=== PATIENT | female | born 1940 | race Caucasian/White ===

== ENCOUNTER → 2018-08-13 | Outpatient (CLI) | payer MEDICARE ==
--- NOTE | 2018-08-13 11:29 | US ---
EXAMINATION TYPE: US kidneys/renal and bladder DATE OF EXAM: 08/13/2018 COMPARISON: NONE CLINICAL HISTORY: R94.4 abnormal renal function tests. EXAM MEASUREMENTS: Right Kidney: 9.0 x 3.7 x 3.3 cm Left Kidney: 8.4 x 3.5 x 3.6 cm Large body habitus Right Kidney: multiple cysts noted, mid probable cyst has internal echoes and measures 0.9 x 0.6 x 0. 7cm Left Kidney: measures small, lobular in appearance Bladder: not fully distended, limited evaluation There is no evidence for hydronephrosis at this point in time. No nephrolithiasis is seen. The ur inary bladder is anechoic. Bilateral ureteral jets are seen. IMPRESSION: 1. Renal atrophic changes. 2. Renal cystic changes as noted above.
== END | disposition home or self-care (01) ==
LOC: RADUSWWP 10:50
PROVIDERS: ATTEND Family Medicine
DX: N26.1 Atrophy of kidney (terminal) (principal); N28.1 Cyst of kidney, acquired
CPT/HCPCS: 76770

== ENCOUNTER 2020-07-08 16:35 | Observation (INO) | payer MEDICARE ==
[2020-07-08 17:18] LABS: Basophils # (A) 0.1 k/uL (0-0.2); Basophils % (A) 1 %; Eosinophils # (A) 0.2 k/uL (0-0.7); Eosinophils % (A) 1 %; HCT 47.7 % (34.0-46.0); HGB 14.9 gm/dL (11.4-16.0); Hypochromasia Slight; Lymphocytes # (A) 1.9 k/uL (1.0-4.8); Lymphocytes % (A) 16 %; MCH 29.4 pg (25.0-35.0); MCHC 31.2 g/dL (31.0-37.0); MCV 94.2 fL (80.0-100.0); Mean Platelet Volume 8.2; Monocytes # (A) 0.7 k/uL (0-1.0); Monocytes % (A) 6 %; Neutrophils # (A) 8.8 k/uL (1.3-7.7); Neutrophils % (A) 74 %; Platelet Count 167 k/uL (150-450); RBC 5.07 m/uL (3.80-5.40); RDW 14.6 % (11.5-15.5)
[2020-07-08 17:29] LABS: INR 1.2 (<1.2); Partial Thromboplastin Time 28.4 sec (22.0-30.0); Prothrombin Time 12.5 sec (9.0-12.0)
[2020-07-08 17:37] LABS: Albumin 3.5 g/dL (3.5-5.0); Calcium 8.8 mg/dL (8.4-10.2); Magnesium 2.2 mg/dL (1.6-2.3); Potassium 4.6 mmol/L (3.5-5.1); Total Bilirubin 1.1 mg/dL (0.2-1.3)
--- NOTE | 2020-07-08 18:06 | ED ---
General Adult HPI - General Chief complaint: Recheck/Abnormal Lab/Rx Stated complaint: poss aneurysm Time Seen by Provider: 07/08/20 16:35 Source: patient, family, RN notes reviewed, old records reviewed Mode of arrival: wheelchair Limitations: no limitations - History of Present Illness Initial comments: This is an 80-year-old female who presents to the emergency department. Patient was called back to the emergency department because they found a 7.8 cm abdominal aneurysm minute 4.8D sending thoracic aneurysm. Patient states currently she is feeling normal. Patient denies any symptoms currently. Patient initially got a CAT scan because of a rectal prolapse and the return to determine if there is something causing this. Patient also has had a recent weight loss. Patient denies any back pain or abdominal pain patient denies nausea vomiting diarrhea. Patient has any fever chills or cough. - Related Data Home Medications Medication Instructions Recorded Confirmed Ipratropium-Albuterol Nebulize 3 ml INHALATION RT-Q4H PRN 07/08/20 07/08/20 [Duoneb 0.5 mg-3 mg/3 ml Soln] Levothyroxine Sodium [Synthroid] 112 mcg PO DAILY 07/08/20 07/08/20 Metoprolol Tartrate 25 mg PO HS 07/08/20 07/08/20 Metoprolol Tartrate 50 mg PO DAILY 07/08/20 07/08/20 Rivaroxaban [Xarelto] 10 mg PO DAILY 07/08/20 07/08/20 Allergies Allergy/AdvReac Type Severity Reaction Status Date / Time No Known Allergies Allergy Verified 07/08/20 18:29 Review of Systems ROS Statement: Those systems with pertinent positive or pertinent negative responses have been documented in the HPI. ROS Other: All systems not noted in ROS Statement are negative. Past Medical History Past Medical History: Heart Failure, Thyroid Disorder Additional Past Medical History / Comment(s): stage 4 kidney disease History of Any Multi-Drug Resistant Organisms: None Reported Past Surgical History: No Surgical Hx Reported Past Psychological History: No Psychological Hx Reported Smoking Status: Current some day smoker Past Alcohol Use History: None Reported Past Drug Use History: None Reported General Exam - General Exam Comments Initial Comments: GENERAL: Patient is well-developed and well-nourished. Patient is nontoxic and well- hydrated and is in no acute distress. ENT: Neck is soft and supple. No significant lymphadenopathy is noted. Oropharynx is clear. Moist mucous membranes. Neck has full range of motion without eliciting any pain. EYES: The sclera were anicteric and conjunctiva were pink and moist. Extraocular movements were intact and pupils were equal round and reactive to light. Eyelids were unremarkable. PULMONARY: Unlabored respirations. Good breath sounds bilaterally. No audible rales rhonchi or wheezing was noted. CARDIOVASCULAR: There is a regular rate and rhythm without any murmurs gallops or rubs. ABDOMEN: Soft and nontender with normal bowel sounds. SKIN: Skin is clear with no lesions or rashes and otherwise unremarkable. NEUROLOGIC: Patient is alert and oriented x3. Cranial nerves II through XII are grossly intact. Motor and sensory are also intact. Normal speech, volume and content. Symmetrical smile. MUSCULOSKELETAL: Normal extremities with adequate strength and full range of motion. No lower extremity swelling or edema. No calf tenderness. LYMPHATICS: No significant lymphadenopathy is noted PSYCHIATRIC: Normal psychiatric evaluation. Limitations: no limitations Course Vital Signs 07/08/20 07/08/20 07/08/20 16:35 16:56 18:23 Temperature 98.4 F Pulse Rate 108 H 105 H Respiratory 16 16 Rate Blood Pressure 106/78 125/78 Blood Pressure 122/90 [Left Arm Sitting] Blood Pressure 125/68 [Right Arm Sitting] O2 Sat by Pulse 98 100 Oximetry Medical Decision Making - Medical Decision Making EKG shows atrial fibrillation at a rapid rate 112 bpm QRS is 94 QT interval 334 QTC is 455. Patient's EKG shows no significant ST elevation or depression Patient's creatinine was too elevated to do a CAT scan at this time. I spoke with Dr. Caraballo and he wanted the patient admitted and seen by nephrology. I spoke with Dr. Singer - Lab Data Result diagrams: 07/08/20 17:01 07/08/20 17:01 Lab Results 07/08/20 07/08/20 07/08/20 Range/Units 17:01 17:01 17:01 WBC 12.0 H (3.8-10.6) k/uL RBC 5.07 (3.80-5.40) m/uL Hgb 14.9 (11.4-16.0) gm/dL Hct 47.7 H (34.0-46.0) % MCV 94.2 (80.0-100.0) fL MCH 29.4 (25.0-35.0) pg MCHC 31.2 (31.0-37.0) g/dL RDW 14.6 (11.5-15.5) % Plt Count 167 (150-450) k/uL Neutrophils % 74 % Lymphocytes % 16 % Monocytes % 6 % Eosinophils % 1 % Basophils % 1 % Neutrophils # 8.8 H (1.3-7.7) k/uL Lymphocytes # 1.9 (1.0-4.8) k/uL Monocytes # 0.7 (0-1.0) k/uL Eosinophils # 0.2 (0-0.7) k/uL Basophils # 0.1 (0-0.2) k/uL Hypochromasia Slight PT 12.5 H (9.0-12.0) sec INR 1.2 H (<1.2) APTT 28.4 (22.0-30.0) sec Sodium 135 L (137-145) mmol/L Potassium 4.6 (3.5-5.1) mmol/L Chloride 102 (98-107) mmol/L Carbon Dioxide 23 (22-30) mmol/L Anion Gap 10 mmol/L BUN 60 H (7-17) mg/dL Creatinine 2.60 H (0.52-1.04) mg/dL Est GFR (CKD-EPI)AfAm 19 (>60 ml/min/1.73 sqM) Est GFR (CKD-EPI)NonAf 17 (>60 ml/min/1.73 sqM) Glucose 87 (74-99) mg/dL Calcium 8.8 (8.4-10.2) mg/dL Magnesium 2.2 (1.6-2.3) mg/dL Total Bilirubin 1.1 (0.2-1.3) mg/dL AST 27 (14-36) U/L ALT 27 (4-34) U/L Alkaline Phosphatase 51 (38-126) U/L Troponin I (0.000-0.034) ng/mL Total Protein 6.0 L (6.3-8.2) g/dL Albumin 3.5 (3.5-5.0) g/dL 07/08/20 Range/Units 17:01 WBC (3.8-10.6) k/uL RBC (3.80-5.40) m/uL Hgb (11.4-16.0) gm/dL Hct (34.0-46.0) % MCV (80.0-100.0) fL MCH (25.0-35.0) pg MCHC (31.0-37.0) g/dL RDW (11.5-15.5) % Plt Count (150-450) k/uL Neutrophils % % Lymphocytes % % Monocytes % % Eosinophils % % Basophils % % Neutrophils # (1.3-7.7) k/uL Lymphocytes # (1.0-4.8) k/uL Monocytes # (0-1.0) k/uL Eosinophils # (0-0.7) k/uL Basophils # (0-0.2) k/uL Hypochromasia PT (9.0-12.0) sec INR (<1.2) APTT (22.0-30.0) sec Sodium (137-145) mmol/L Potassium (3.5-5.1) mmol/L Chloride (98-107) mmol/L Carbon Dioxide (22-30) mmol/L Anion Gap mmol/L BUN (7-17) mg/dL Creatinine (0.52-1.04) mg/dL Est GFR (CKD-EPI)AfAm (>60 ml/min/1.73 sqM) Est GFR (CKD-EPI)NonAf (>60 ml/min/1.73 sqM) Glucose (74-99) mg/dL Calcium (8.4-10.2) mg/dL Magnesium (1.6-2.3) mg/dL Total Bilirubin (0.2-1.3) mg/dL AST (14-36) U/L ALT (4-34) U/L Alkaline Phosphatase (38-126) U/L Troponin I 0.018 (0.000-0.034) ng/mL Total Protein (6.3-8.2) g/dL Albumin (3.5-5.0) g/dL Disposition Clinical Impression: Abdominal aortic aneurysm Disposition: ADMITTED IP TO THIS [facility] Referrals: Elpidio Viveros MD [Primary Care Provider] - 1-2 days Time of Disposition: 19:19
[2020-07-08] MEDS ORDERED: SODIUM CHLORIDE 0.9% 1,000 ML IV ONE (19:20)
[2020-07-08] MEDS ORDERED: NALOXONE 0.4 MG/ML 1 ML VIAL IV PRN (23:05)
[2020-07-08] MEDS ORDERED: METOPROLOL TARTRATE 25 MG TAB PO SCH (23:45)
[2020-07-08] MEDS ORDERED: IPRATROPIUM-ALBUTEROL 3 ML NEB INHALATION PRN (23:58)
--- NOTE | 2020-07-09 00:04 | P.HPIM ---
History of Present Illness H&P Date: 07/08/20 Chief Complaint: abnormal CT scan results 80-year-old female with COPD, new onset A. fib on Xarelto Patient comes in upon notification from her doctor that she had abnormal CAT scan showing large abdominal aortic aneurysm that was found incidentally on a CAT scan of the abdomen that was done for rectal prolapse. Patient is asymptomatic denies any chest pain or trouble breathing denies any bleeding denies any fevers or chills denies any shortness of breath denies any nausea vomiting denies any abdominal pain She had a CAT scan of the abdomen done today and a workup for her rectal prolapse and incidentally was found to have a descending thoracic aortic aneurysm of 4.8 cm and an abdominal aortic aneurysm of 7.8 cm for which her doctor called her asking her to come to the hospital to get evaluated by vascular surgery. Review of Systems Pertinent positives as noted in HPI. All other systems were reviewed and are negative Past Medical History Past Medical History: Heart Failure, Thyroid Disorder Additional Past Medical History / Comment(s): stage 4 kidney disease, rectal prolapse History of Any Multi-Drug Resistant Organisms: None Reported Past Surgical History: Section Additional Past Surgical History / Comment(s): brain aneurysum 10 or 11 years ago, possible stenting Past Anesthesia/Blood Transfusion Reactions: No Reported Reaction Past Psychological History: No Psychological Hx Reported Smoking Status: Current some day smoker Past Alcohol Use History: None Reported Additional Past Alcohol Use History / Comment(s): has cut back to less than a pack a day Past Drug Use History: None Reported - Past Family History Family Family Medical History: No Reported History Medications and Allergies Home Medications Medication Instructions Recorded Confirmed Type Ipratropium-Albuterol Nebulize 3 ml INHALATION RT-Q4H PRN 07/08/20 07/08/20 History [Duoneb 0.5 mg-3 mg/3 ml Soln] Levothyroxine Sodium [Synthroid] 112 mcg PO DAILY 07/08/20 07/08/20 History Metoprolol Tartrate 25 mg PO HS 07/08/20 07/08/20 History Metoprolol Tartrate 50 mg PO DAILY 07/08/20 07/08/20 History Rivaroxaban [Xarelto] 10 mg PO DAILY 07/08/20 07/08/20 History Allergies Allergy/AdvReac Type Severity Reaction Status Date / Time No Known Allergies Allergy Verified 07/08/20 18:29 Physical Exam Vitals: Vital Signs Temp Pulse Pulse Resp BP BP BP 07/08/20 22:35 100 07/08/20 22:34 98.1 F 100 20 115/91 07/08/20 20:53 98.1 F 103 H 16 126/85 07/08/20 19:31 97 16 125/68 07/08/20 18:23 105 H 16 125/78 07/08/20 16:56 122/90 125/68 07/08/20 16:35 98.4 F 108 H 16 106/78 Pulse Ox 07/08/20 22:35 07/08/20 22:34 96 07/08/20 20:53 99 07/08/20 19:31 100 07/08/20 18:23 100 07/08/20 16:56 07/08/20 16:35 98 Intake and Output 07/08/20 07/08/20 07/09/20 14:59 22:59 06:59 Other: Voiding Method Toilet # Voids 1 Weight 56.699 kg Constitutional: No acute distress, conversant, pleasant Eyes: Anicteric sclerae, moist conjunctiva, Pupils equal round reactive to light ENMT: NC/AT Oropharynx clear, no erythema, or exudates Neck: Supple, FROM, no masses, or JVD No carotid bruits No thyromegaly Lungs: Clear to auscultation Clear to percussion Normal respiratory effort, no accessory muscle use Cardiovascular: Heart irregular in rate and rhythm No murmurs, gallops, or rubs Trace bilateral leg edema Abdominal: Soft Nontender, no guarding, rebound or rigidity Abdomen moving with respiration Normoactive bowel sounds No hepatomegaly, No splenomegaly No palpable mass No abdominal wall hernia noted Skin: Normal temperature, tone, texture, turgor No induration No subcutaneous nodules No rash, lesions No ulcers Extremities: No digital cyanosis No clubbing Pedal pulses intact and symmetrical Radial pulses intact and symmetrical No calf tenderness Psychiatric: Alert and oriented to person, place and time Appropriate affect fair judgement Neuro Muscles Strength 5/5 in all 4 extremities Sensation to light touch grossly present throughout Cranial nerves II-XII grossly intact No focal sensory deficits Lymphatics: no palpable cervical or supraclavicular , or inguinal lymph nodes Results CBC & Chem 7: 07/08/20 17:01 07/08/20 17:01 Labs: Abnormal Lab Results - Last 24 Hours (Table) 07/08/20 07/08/20 07/08/20 Range/Units 17:01 17:01 17:01 WBC 12.0 H (3.8-10.6) k/uL Hct 47.7 H (34.0-46.0) % Neutrophils # 8.8 H (1.3-7.7) k/uL PT 12.5 H (9.0-12.0) sec INR 1.2 H (<1.2) Sodium 135 L (137-145) mmol/L BUN 60 H (7-17) mg/dL Creatinine 2.60 H (0.52-1.04) mg/dL Total Protein 6.0 L (6.3-8.2) g/dL Thrombosis Risk Factor Assmnt - Choose All That Apply Any of the Below Risk Factors Present?: Yes Each Factor Represents 1 point: Abnormal pulmonary function (COPD) Other Risk Factors: No Other congenital or acquired thrombophilia - If yes, enter type in comment: No Thrombosis Risk Factor Assessment Total Risk Factor Score: 1 Thrombosis Risk Factor Assessment Level: Low Risk Assessment and Plan Assessment: Incidental finding of large aortic abdominal aneurysm 7.8 cm and descending thoracic aortic aneurysm 4.8 cm Consultation to vascular surgery Chronic conditions COPD currently compensated resume Symbicort and DuoNeb's when necessary New onset A. fib rate controlled on Xarelto and metoprolol Mild Bilateral lower extremity edema, currently diuretics are on hold per her PCP Check echocardiogram assess left ventricular function CODE STATUS: Full code DVT prophylaxis: On Xarelto Discussed with: Patient, ER, RN Anticipated length of stay less than [address]: Home A total of 65 minutes was spent on the care of this complex patient more than 50% of the time was spent in counseling and care coordination.
[2020-07-09] MEDS ORDERED: LEVOTHYROXINE 112 MCG TAB PO SCH (06:30)
[2020-07-09 07:30] LABS: Basophils # (A) 0.1 k/uL (0-0.2); Basophils % (A) 1 %; Eosinophils # (A) 0.1 k/uL (0-0.7); Eosinophils % (A) 1 %; HCT 47.7 % (34.0-46.0); HGB 14.4 gm/dL (11.4-16.0); Hypochromasia Slight; Lymphocytes # (A) 1.9 k/uL (1.0-4.8); Lymphocytes % (A) 19 %; MCH 28.5 pg (25.0-35.0); MCHC 30.1 g/dL (31.0-37.0); MCV 94.7 fL (80.0-100.0); Mean Platelet Volume 7.7; Monocytes # (A) 0.6 k/uL (0-1.0); Monocytes % (A) 6 %; Neutrophils # (A) 6.9 k/uL (1.3-7.7); Neutrophils % (A) 71 %; Platelet Count 155 k/uL (150-450); RBC 5.04 m/uL (3.80-5.40); RDW 14.6 % (11.5-15.5); WBC 9.7 k/uL (3.8-10.6)
[2020-07-09 07:45] LABS: Albumin 3.1 g/dL (3.5-5.0); Calcium 8.5 mg/dL (8.4-10.2); Magnesium 2.1 mg/dL (1.6-2.3); Potassium 4.2 mmol/L (3.5-5.1); Total Bilirubin 1.4 mg/dL (0.2-1.3); Total Protein 5.5 g/dL (6.3-8.2)
[2020-07-09] MEDS ORDERED: SYMBICORT 80-4.5 MCG INHALER INHALATION SCH (08:00)
[2020-07-09] MEDS ORDERED: METOPROLOL TARTRATE 25 MG TAB PO SCH (09:00)
[2020-07-09] MEDS ORDERED: RIVAROXABAN 10 MG TAB PO SCH (09:00)
[2020-07-09] MEDS ORDERED: NICOTINE 14MG/24HR PATCH TRANSDERM SCH (09:00)
--- NOTE | 2020-07-09 10:05 | P.NPCON ---
History of Present Illness - Reason for Consult chronic renal failure - History of Present Illness Reason for consultation: Chronic kidney disease History of present illness: Patient is a 80-year-old female seen in consultation for chronic kidney disease. 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 However her records it appears that she does have chronic kidney disease stage IV secondary to nephrosclerosis. Patient's creatinine on admission was 2.6 and is 2.43 today. Unknown baseline renal function. No history of high blood pressure or diabetes. Patient presented to the hospital due to concern for abdominal aortic aneurysm that was found on CAT scan of the abdomen and pelvis. The CAT scan was actually done to evaluate the rectal prolapse. Patient denies any chest pain or ron rtness of breath. No edema. Good urine output. No hematuria or dysuria. Denies use of nonsteroidals. No dizziness or syncopal episodes. CAT scan revealed a descending thoracic aortic aneurysm of 4.8 cm and an abdominal aortic aneurysm 7.8 cm. Vascular surgery has been consulted. Echocardiogram is pending. Son is present at bedside. No other complaints. Vital signs are stable. General: The patient appeared well nourished and normally developed. HEENT: Head exam is unremarkable. Neck is without jugular venous distension. LUNGS: Lungs are clear to auscultation and percussion. Breath sounds decreased. HEART: Rate and Rhythm are regular. ABDOMEN: Soft, nontender. EXTREMITITES: No clubbing, cyanosis, or edema. Past Medical History Past Medical History: Heart Failure, Thyroid Disorder Additional Past Medical History / Comment(s): stage 4 kidney disease, rectal prolapse History of Any Multi-Drug Resistant Organisms: None Reported Past Surgical History: Section Additional Past Surgical History / Comment(s): brain aneurysum 10 or 11 years ago, possible stenting Past Anesthesia/Blood Transfusion Reactions: No Reported Reaction Past Psychological History: No Psychological Hx Reported Smoking Status: Current some day smoker Past Alcohol Use History: None Reported Additional Past Alcohol Use History / Comment(s): has cut back to less than a pack a day Past Drug Use History: None Reported - Past Family History Family Family Medical History: No Reported History Medications and Allergies Home Medications Medication Instructions Recorded Confirmed Type Ipratropium-Albuterol Nebulize 3 ml INHALATION RT-Q4H PRN 07/08/20 07/08/20 History [Duoneb 0.5 mg-3 mg/3 ml Soln] Levothyroxine Sodium [Synthroid] 112 mcg PO DAILY 07/08/20 07/08/20 History Metoprolol Tartrate 25 mg PO HS 07/08/20 07/08/20 History Metoprolol Tartrate 50 mg PO DAILY 07/08/20 07/08/20 History Rivaroxaban [Xarelto] 10 mg PO DAILY 07/08/20 07/08/20 History Allergies Allergy/AdvReac Type Severity Reaction Status Date / Time No Known Allergies Allergy Verified 07/08/20 18:29 Physical Exam Vitals: Vital Signs Temp Pulse Pulse Resp BP BP BP 07/09/20 09:00 97.6 F 98 18 114/82 07/09/20 03:40 97.8 F 84 20 104/69 07/08/20 22:35 100 07/08/20 22:34 98.1 F 100 20 115/91 07/08/20 20:53 98.1 F 103 H 16 126/85 07/08/20 19:31 97 16 07/08/20 18:23 105 H 16 125/78 07/08/20 16:56 122/90 07/08/20 16:35 98.4 F 108 H 16 106/78 BP Pulse Ox 07/09/20 09:00 98 07/09/20 03:40 95 07/08/20 22:35 07/08/20 22:34 96 07/08/20 20:53 99 07/08/20 19:31 125/68 100 07/08/20 18:23 100 07/08/20 16:56 125/68 07/08/20 16:35 98 Intake and Output 07/08/20 07/09/20 07/09/20 22:59 06:59 14:59 Intake Total 200 Balance 200 Intake: Other 200 Other: Voiding Method Toilet Toilet Toilet # Voids 1 Weight 56.699 kg Results - Lab Results Most recent lab results Calcium 8.5 mg/dL (8.4-10.2) 07/09/20 06:53 Magnesium 2.1 mg/dL (1.6-2.3) 07/09/20 06:53 07/09/20 06:53 07/09/20 06:53 Assessment and Plan Plan: Assessment: 1. Chronic kidney disease stage IV secondary to nephrosclerosis. Creatinine 2. 4 today. Unknown baseline renal function. 2. Abdominal aortic aneurysm. Vascular surgery consulted. 3. Rectal prolapse. Plan: Check urinalysis and renal ultrasound. Avoid nephrotoxins. Continue to monitor renal function and urine output. Patient will need to follow up outpatient for chronic kidney disease care. Thank you for the consultation. I will continue to follow the patient with you during her hospital stay.
[2020-07-09 11:33] LABS: Appearance,Urine Clear (Clear); Bilirubin,Urine Negative (Negative); Blood,Urine Trace (Negative); Color,Urine Yellow; Glucose,Urine (UA) Negative (Negative); Hyaline Casts,Urine 1 /lpf (0-2); Ketones,Urine Trace (Negative); Leukocyte Esterase,Urine Small (Negative); Nitrite,Urine Negative (Negative); Protein,Urine 2+ (Negative); RBC,Urine 4 /hpf (0-5); Specific Gravity,Urine 1.013 (1.001-1.035); Squamous Epithelial Cell,Urine 1 /hpf (0-4); Urobilinogen,Urine <2.0 mg/dL (<2.0); WBC,Urine 6 /hpf (0-5)
--- NOTE | 2020-07-09 11:52 | ECHOF ---
Referral Reason:assess LV function MEASUREMENTS -------- HEIGHT: 152.4 cm WEIGHT: 56.7 kg BP: RVIDd: 3.3 cm (< 3.3) IVSd: 1.1 cm (0.6 - 1.1) LVIDd: 3.9 cm (3.9 - 5.3) LVPWd: 1.5 cm (0.6 - 1.1) EDV(Teich): 67 ml IVSs: 1.4 cm LVIDs: 2.9 cm LVPWs: 1.6 cm %IVS Thck: 30 % ESV(Teich): 32 ml EF(Teich): 52 % %FS: 26 % SV(Teich): 35 ml LA Diam: 4.8 cm (2.7 - 3.8) LALs A4C: 5.6 cm LAAs A4C: 18.6 cm LAESV A-L A4C: 52 ml LAESV MOD A4C: 50 ml LALs A2C: 5.3 cm LAAs A2C: 20.8 cm LAESV A-L A2C: 69 ml LAESV MOD A2C: 67 ml LAESV(A-L): 62 ml LAESV Index (A-L): 40.51 ml/m MV EXCURSION: 15.271 mm (> 18.000) MV EF SLOPE: 41 mm/s (70 - 150) EPSS: 0.7 cm LVOT Vmax: 0.76 m/s LVOT maxP.34 mmHg LVOT Vmax: 0.78 m/s LVOT Vmean: 0.52 m/s LVOT maxP.40 mmHg LVOT meanP.23 mmHg LVOT Env.Ti: 318 ms LVOT VTI: 16.4 cm AV Vmax: 2.99 m/s AV maxP.96 mmHg AV Vmax: 3.04 m/s AV Vmean: 2.14 m/s AV maxP.19 mmHg AV meanP.94 mmHg AV Env.Ti: 246 ms AV VTI: 52.7 cm AR Vmax: 4.63 m/s AR maxP.65 mmHg AR PHT: 420 ms AR Dec Time: 1447 ms AR Dec [place]: 3.2 m/s TR Vmax: 3.67 m/s TR maxP.80 mmHg RAP: 5.00 mmHg RVSP: 58.80 mmHg FINDINGS -------- Atrial fibrillation. This was a technically adequate study. The left ventricular size is normal. Left ventricular wall thickness is normal. Overall left vent ricular systolic function is low-normal with, an EF between 50 - 55 %. The right ventricle is normal in size. The left atrium is markedly dilated. LA is severely dilated >40 ml/m2 The right atrial size is normal. There is moderate aortic regurgitation. There is moderate aortic stenosis present. Peak/mean grad ient across the Aortic Valve is 37.19mmHg / 20.94mmHg. Mild mitral annular calcification present. [id number] mitral regurgitation is present. Moderate tricuspid regurgitation present. There is moderate pulmonary hypertension. Trace/mild (physiologic) pulmonic regurgitation. The aortic root size is normal. There is no pericardial effusion. CONCLUSIONS -------- 1. The left ventricular size is normal. 2. Left ventricular wall thickness is normal. 3. Overall left ventricular systolic function is low-normal with, an EF between 50 - 55 %. 4. The right ventricle is normal in size. 5. LA is severely dilated >40 ml/m2 6. The right atrial size is normal. 7. There is moderate aortic regurgitation. 8. There is moderate aortic stenosis present. 9. Peak/mean gradient across the Aortic Valve is 37.19mmHg / 20.94mmHg. 10. Mild mitral annular calcification present. 11. [id number] mitral regurgitation is present. 12. Moderate tricuspid regurgitation present. 13. There is moderate pulmonary hypertension. 14. Trace/mild (physiologic) pulmonic regurgitation. [employer] LO[employer]ER AND CLEANER: Dora Soares RDCS
--- NOTE | 2020-07-09 12:45 | P.GSCN ---
History of Present Illness Consult date: 07/09/20 Reason for Consult: Abdominal aortic aneurysm History of present illness: This is an 80-year-old female who presented to the emergency department after her PCP called her and told her they found an incidental finding on her CT scan. She had an outpatient computed tomography scan of the abdomen and pelvis in regards to a rectal prolapse, and there was an incidental finding within aorta aneurysm at the level of the descending aorta the transverse dimensions measure approximately 4.8 cm. Arthrosclerotic vascular calcifications are present. Pararenal abdominal aortic aneurysm measuring 7.8 cm. Common iliac arteries show normal caliber. Final impression states abdominal aortic aneurysm. Thoracic aortic aneurysm with effusion, difficult to exclude leak. She has a past medical history that includes heart failure, coronary artery disease, thyroid disorder, stage IV kidney disease and rectal prolapse. She is a smoker of greater than 60 years, states that she is down to about 5 cigarettes a day. Patient denies any shortness of breath or chest pain. Denies any abdominal or back pain. Patient states she generally has good urine output, no hematuria or dysuria. BUN 77, creatinine 2.43. Echocardiogram has been ordered. Review of Systems A 14 point review of systems completed and all pertinent positives and negatives as stated in the HPI Past Medical History Past Medical History: Heart Failure, Thyroid Disorder Additional Past Medical History / Comment(s): stage 4 kidney disease, rectal prolapse History of Any Multi-Drug Resistant Organisms: None Reported Past Surgical History: Section Additional Past Surgical History / Comment(s): brain aneurysum 10 or 11 years ago, possible stenting Past Anesthesia/Blood Transfusion Reactions: No Reported Reaction Past Psychological History: No Psychological Hx Reported Smoking Status: Current some day smoker Past Alcohol Use History: None Reported Additional Past Alcohol Use History / Comment(s): has cut back to less than a pack a day Past Drug Use History: None Reported - Past Family History Family Family Medical History: No Reported History Medications and Allergies Home Medications Medication Instructions Recorded Confirmed Type Ipratropium-Albuterol Nebulize 3 ml INHALATION RT-Q4H PRN 07/08/20 07/08/20 History [Duoneb 0.5 mg-3 mg/3 ml Soln] Levothyroxine Sodium [Synthroid] 112 mcg PO DAILY 07/08/20 07/08/20 History Metoprolol Tartrate 25 mg PO HS 07/08/20 07/08/20 History Metoprolol Tartrate 50 mg PO DAILY 07/08/20 07/08/20 History Rivaroxaban [Xarelto] 10 mg PO DAILY 07/08/20 07/08/20 History Allergies Allergy/AdvReac Type Severity Reaction Status Date / Time No Known Allergies Allergy Verified 07/08/20 18:29 Surgical - Exam Vital Signs Temp Pulse Resp BP Pulse Ox 98.4 F 108 H 16 106/78 98 07/08/20 16:35 07/08/20 16:35 07/08/20 16:35 07/08/20 16:35 07/08/20 16:35 General appearance: The patient is alert, oriented, in no acute distress. HET: Head is normocephalic and atraumatic. Neck: Supple. Trachea midline. Heart: S1 S2. Regular rate and rhythm. Lungs: No crackles or wheezes are heard. Abdomen: Soft, nontender, nondistended with bowel sounds. No peritoneal signs. No palpable organomegaly or masses. Extremities: Normal skin color and turgor. Bilateral lower extremity edema. Radial and pedal pulses are 2/4 bilaterally. Neurological: No focal deficits. Strength and sensation are grossly intact. Results CT abdomen and pelvis without contrast reviewed and dictated in HPI - Labs 07/09/20 06:53 07/09/20 06:53 Abnormal Lab Results - Last 24 Hours (Table) 07/08/20 07/08/20 07/08/20 Range/Units 17:01 17:01 17:01 WBC 12.0 H (3.8-10.6) k/uL Hct 47.7 H (34.0-46.0) % MCHC (31.0-37.0) g/dL Neutrophils # 8.8 H (1.3-7.7) k/uL PT 12.5 H (9.0-12.0) sec INR 1.2 H (<1.2) Sodium 135 L (137-145) mmol/L BUN 60 H (7-17) mg/dL Creatinine 2.60 H (0.52-1.04) mg/dL Glucose (74-99) mg/dL Total Bilirubin (0.2-1.3) mg/dL Total Protein 6.0 L (6.3-8.2) g/dL Albumin (3.5-5.0) g/dL HDL Cholesterol (40-60) mg/dL 07/09/20 07/09/20 Range/Units 06:53 06:53 WBC (3.8-10.6) k/uL Hct 47.7 H (34.0-46.0) % MCHC 30.1 L (31.0-37.0) g/dL Neutrophils # (1.3-7.7) k/uL PT (9.0-12.0) sec INR (<1.2) Sodium 135 L (137-145) mmol/L BUN 57 H (7-17) mg/dL Creatinine 2.43 H (0.52-1.04) mg/dL Glucose 64 L (74-99) mg/dL Total Bilirubin 1.4 H (0.2-1.3) mg/dL Total Protein 5.5 L (6.3-8.2) g/dL Albumin 3.1 L (3.5-5.0) g/dL HDL Cholesterol 32 L (40-60) mg/dL Diabetes panel 07/08/20 07/09/20 Range/Units 17:01 06:53 Sodium 135 L 135 L (137-145) mmol/L Potassium 4.6 4.2 (3.5-5.1) mmol/L Chloride 102 104 (98-107) mmol/L Carbon Dioxide 23 24 (22-30) mmol/L BUN 60 H 57 H (7-17) mg/dL Creatinine 2.60 H 2.43 H (0.52-1.04) mg/dL Glucose 87 64 L (74-99) mg/dL Calcium 8.8 8.5 (8.4-10.2) mg/dL AST 27 25 (14-36) U/L ALT 27 27 (4-34) U/L Alkaline Phosphatase 51 51 (38-126) U/L Total Protein 6.0 L 5.5 L (6.3-8.2) g/dL Albumin 3.5 3.1 L (3.5-5.0) g/dL Triglycerides 121 (<150) mg/dL HDL Cholesterol 32 L (40-60) mg/dL Calcium panel 07/08/20 07/09/20 Range/Units 17:01 06:53 Calcium 8.8 8.5 (8.4-10.2) mg/dL Albumin 3.5 3.1 L (3.5-5.0) g/dL Pituitary panel 07/08/20 07/09/20 Range/Units 17:01 06:53 Sodium 135 L 135 L (137-145) mmol/L Potassium 4.6 4.2 (3.5-5.1) mmol/L Chloride 102 104 (98-107) mmol/L Carbon Dioxide 23 24 (22-30) mmol/L BUN 60 H 57 H (7-17) mg/dL Creatinine 2.60 H 2.43 H (0.52-1.04) mg/dL Glucose 87 64 L (74-99) mg/dL Calcium 8.8 8.5 (8.4-10.2) mg/dL Adrenal panel 07/08/20 07/09/20 Range/Units 17:01 06:53 Sodium 135 L 135 L (137-145) mmol/L Potassium 4.6 4.2 (3.5-5.1) mmol/L Chloride 102 104 (98-107) mmol/L Carbon Dioxide 23 24 (22-30) mmol/L BUN 60 H 57 H (7-17) mg/dL Creatinine 2.60 H 2.43 H (0.52-1.04) mg/dL Glucose 87 64 L (74-99) mg/dL Calcium 8.8 8.5 (8.4-10.2) mg/dL Total Bilirubin 1.1 1.4 H (0.2-1.3) mg/dL AST 27 25 (14-36) U/L ALT 27 27 (4-34) U/L Alkaline Phosphatase 51 51 (38-126) U/L Total Protein 6.0 L 5.5 L (6.3-8.2) g/dL Albumin 3.5 3.1 L (3.5-5.0) g/dL Assessment and Plan Assessment: 1. Abdominal aortic aneurysm measuring 7.8 cm 2. Thoracic aortic aneurysm 3. Coronary artery disease 4. Chronic kidney disease stage IV Plan: I discussed this patient with Dr. Caraballo. He will be in to see the patient to discuss options of plan of care due to the size of the thoracic and abdominal aortic aneurysm, her chronic kidney disease, and age she is high risk as a surgical candidate. Appreciate recommendations per nephrology. Echocardiogram pending results.Further recommendations to follow. You for this consultation allowing us take part in the plan of care of your patient during her hospital stay. The above dictated assessment and findings were discussed with Dr. Caraballo. The impression and plan of care have been directed as dictated.
[2020-07-09 13:22] VITALS: BMI 23.6
[2020-07-09 14:57] VITALS: BP 117/67; PULSE 110; RESP 18; TEMP 97.8
--- NOTE | 2020-07-09 16:43 | US ---
EXAMINATION TYPE: US kidneys/renal and bladder DATE OF EXAM: 07/09/2020 COMPARISON: US 08/13/18, CT07/08/20 CLINICAL HISTORY: toño. EXAM MEASUREMENTS: Right Kidney: 8.8 x 3.8 x 3.6 cm Left Kidney: 8.5 x 4.1 x 4.0 cm Right Kidney: small in size, multiple cysts seen again. Largest = 1.9 x 1.3 x 1.5cm, No hydronephrosi s or stones seen Left Kidney: small in size, multiple cysts seen again. Largest = 1.2 x 1.3 x 1.1cm, No hydronephrosis or stones seen Bladder: wnl Bilateral Jets seen: Yes There is no evidence for hydronephrosis at this point in time. No nephrolithiasis is seen. No tori s are identified. The urinary bladder is anechoic. Bilateral ureteral jets are seen. IMPRESSION: Kidneys are small consistent with asymmetric atrophy. No evidence of a solid renal mass. No obstructi on. Abdominal aortic aneurysm noted with circumferential thrombus.
--- NOTE | 2020-07-09 17:35 | P.DS ---
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 fib, rectal prolapse, and hypothyroidism who presented at that her primary care nurse practitioner secondary to findings of thoracic aortic aneurysm on CT abdomen and pelvis. In the ER she underwent an extensive evaluation. Her initial vital signs within normal limits. Blood pressures in both arms were equal. Initial laboratory analysis showed white blood cell count 12, creatinine 2.6, urinalysis was negative. She is admitted for further evaluation of her aortic aneurysm as they were unable to determine if any extravasation on the noncontrasted outpatient CT. She was seen by nephrology who recommended outpatient follow-up. She underwent an echocardiogram which showed an ejection fraction of 50-55%, moderate aortic stenosis, moderate to severe mitral regurgitation, moderate tricuspid regurgitation, and moderate pulm onary hypertension. She was seen by vascular surgery. They stated no urgent intervention needed as no signs of leak or impending rupture. Recommended outpatient follow-up if the patient wanted to go through the extensive surgical repair for her aortic aneurysm. They only suggested doing a contrasted study if she for sure would want surgery. Patient will follow-up in the outpatient setting with Dr. Lucas of vascular surgery, Dr. Gray of cardiology, and Dr. Garcia. Patient seen and examined at bedside. No chest pain, SOB, nausea, or vomiting, states the only thing bothering her is the rectal prolapse. Vital signs reviewed and stable. General: non toxic, no distress, appears at stated age Derm: warm, dry Head: atraumatic, normocephalic, symmetric Eyes: EOMI, no lid lag, anicteric sclera Mouth: no lip lesion, mucus membranes moist Cardiovascular: S1S2 reg, no murmur, positive posterior tibial pulse bilateral, Lungs: CTA bilateral, no rhonchi, no rales , no accessory muscle use Abdominal: soft, nontender to palpation, no guarding, no appreciable organomegaly Ext: no gross muscle atrophy, no edema, no contractures Neuro: CN II-XI grossly intact, no focal neuro deficits Psych: Alert, oriented, appropriate affect A total of 45 minutes of time were spent preparing this complex discharge summary . Patient Condition at Discharge: Stable Plan - Discharge Summary New Discharge Prescriptions: Continue Metoprolol Tartrate 25 mg PO HS Metoprolol Tartrate 50 mg PO DAILY Levothyroxine Sodium [Synthroid] 112 mcg PO DAILY Ipratropium-Albuterol Nebulize [Duoneb 0.5 mg-3 mg/3 ml Soln] 3 ml INHALATION RT-Q4H PRN PRN Reason: Shortness Of Breath Discontinued Rivaroxaban [Xarelto] 10 mg PO DAILY Discharge Medication List Ipratropium-Albuterol Nebulize [Duoneb 0.5 mg-3 mg/3 ml Soln] 3 ml INHALATION RT-Q4H PRN 07/08/20 [History] Levothyroxine Sodium [Synthroid] 112 mcg PO DAILY 07/08/20 [History] Metoprolol Tartrate 25 mg PO HS 07/08/20 [History] Metoprolol Tartrate 50 mg PO DAILY 07/08/20 [History] Follow up Appointment(s)/Referral(s): Miguelito Gray MD [STAFF PHYSICIAN] - As Needed Elpidio Viveros MD [Primary Care Provider] - 1-2 days Bryan Garcia DO [STAFF PHYSICIAN] - 2 Weeks Jose Lucas DO [STAFF PHYSICIAN] - 1 Week Activity/Diet/Wound Care/Special Instructions: Activity: as tolerated Diet: heart healthy Special Instructions: Stay off Xarelto until follow-up with Dr. Lucas Discharge Disposition: HOME SELF-CARE
== END 2020-07-09 18:05 | disposition home or self-care (01) ==
LOC: EC 16:35 → 1SOBS 19:21
PROVIDERS: ADMIT Internal Medicine; ATTEND Internal Medicine
DX: I71.2 Thoracic aortic aneurysm, without rupture (principal); I71.4 Abdominal aortic aneurysm, without rupture; I25.10 Atherosclerotic heart disease of native coronary artery without angina pectoris; N18.4 Chronic kidney disease, stage 4 (severe); I12.9 Hypertensive chronic kidney disease with stage 1 through stage 4 chronic kidney disease, or unspecified chronic kidney disease; R63.4 Abnormal weight loss; I50.9 Heart failure, unspecified; I48.91 Unspecified atrial fibrillation; E03.9 Hypothyroidism, unspecified; I08.3 Combined rheumatic disorders of mitral, aortic and tricuspid valves; I27.20 Pulmonary hypertension, unspecified; J44.9 Chronic obstructive pulmonary disease, unspecified; F17.210 Nicotine dependence, cigarettes, uncomplicated; R60.0 Localized edema; Z68.23 Body mass index [BMI] 23.0-23.9, adult; Z79.899 Other long term (current) drug therapy; Z79.890 Hormone replacement therapy; Z79.01 Long term (current) use of anticoagulants; Z98.890 Other specified postprocedural states; Z86.79 Personal history of other diseases of the circulatory system
CPT/HCPCS: 93005 ×2; 99285; 36415; 93306; 80061; 80053 ×2; 83735 ×2; 84484; 85025 ×2; 85610; 85730; 81001; 76770; G0378 ×2

== ENCOUNTER → 2020-07-08 | Outpatient (CLI) | payer MEDICARE ==
--- NOTE | 2020-07-08 16:18 | CT ---
EXAMINATION TYPE: CT abdomen pelvis wo con DATE OF EXAM: 07/08/2020 COMPARISON: None HISTORY: rectal prolapse CT DLP: 280.9 mGycm Automated exposure control for dose reduction was used. TECHNIQUE: Helical acquisition of images from the lung bases through the pelvis. FINDINGS: Lack of intravenous contrast compromises the exam. LUNG BASES: There is a small left pleural effusion, there are basilar atelectatic changes, interstiti al changes are present on the left and right, probable bullous change at the left lung base. AORTA: The aorta is aneurysmal, at the level of the descending aorta the transverse dimension measur es approximately 4.8 cm. Atherosclerotic vascular calcifications are present. Pararenal abdominal aor tic aneurysm measures 7.8 cm. Common iliac arteries show normal caliber. LIVER/GB: No significant abnormality is appreciated. PANCREAS: No significant abnormality is seen. SPLEEN: No significant abnormality is seen. ADRENALS: No significant abnormality is seen. KIDNEYS: No significant abnormality is seen. REPRODUCTIVE ORGANS: No significant abnormality is seen. URINARY BLADDER: No significant abnormality is seen. BOWEL: Diverticular change noted in the sigmoid colon.. FREE AIR: No Free Air is visible. ASCITES: None visible. PELVIC ADENOPATHY: None visualized. RETROPERITONEAL ADENOPATHY: No Retroperitoneal Adenopathy visible. OSSEOUS STRUCTURES: Degenerative disc changes, facet arthropathy noted in the lumbar spine. IMPRESSION: ABDOMINAL AORTIC ANEURYSM. THORACIC AORTIC ANEURYSM WITH EFFUSION, DIFFICULT TO EXCLUDE LEAK . SACHIN Phelps WAS CALLED CALLED WITH REPORT BY TELEPHONE AND STATES SHE IS RETURNING TO THE EMERGENCY CENTER, [facility] TRIAGE NURSE AND THE IS AWARE AND NOTIFIED BY TELEPHONE.
== END | disposition home or self-care (01) ==
LOC: RADCTMAIN 15:42
PROVIDERS: ATTEND Nurse Practitioner Adult Health
DX: I71.4 Abdominal aortic aneurysm, without rupture (principal)
CPT/HCPCS: 74176

== ENCOUNTER → 2020-08-25 | Outpatient (CLI) | payer MEDICARE ==
[2020-08-26 04:11] LABS: African American GFR (CKD) 18.5 (60.0-200.0); Anion Gap 11.7 mmol/L (4.00-12.00); BUN/Creat Ratio 17.04 Ratio (12.00-20.00); Carbon Dioxide 27.3 mmol/L (21.6-31.8); Potassium 4.5 mmol/L (3.5-5.5)
== END | disposition home or self-care (01) ==
LOC: LABWHC1 12:35
PROVIDERS: ATTEND Internal Medicine Nephrology
DX: N18.4 Chronic kidney disease, stage 4 (severe) (principal)
CPT/HCPCS: 36415; 80048